=== PATIENT | female | born 1980 | race African-American/Black ===

== ENCOUNTER 2016-06-23 21:08 | Emergency (ER) | payer MEDICAID ==
[~2016-06-23] VITALS: Ht 172.7 cm; Wt 208.7 kg
[2016-06-23] MEDS ORDERED: methylPREDNISolone SOD SUCC 125 MG/2 ML VL IM ONE (23:45)
[2016-06-23] MEDS ORDERED: LEVOFLOXACIN 750MG 150 ML IV ONE (23:45)
[2016-06-23] MEDS ORDERED: ALBUTEROL SULF 2.5 MG/0.5ML(0.5%) NEB SOLN NEB ONE (23:45)
[2016-06-23] MEDS ORDERED: IPRATROPIUM BROM 0.5 MG/2.5ML INH SOL NEB ONE (23:45)
[2016-06-24] MEDS ORDERED: LEVOFLOXACIN 250 MG TAB PO ONE
[2016-06-24 00:07] VITALS: BP 112/82
== END 2016-06-24 02:40 | disposition home or self-care (01) ==
LOC: ER 21:11
DX: J20.9 Acute bronchitis, unspecified (principal); J45.901 Unspecified asthma with (acute) exacerbation; E11.9 Type 2 diabetes mellitus without complications; I10 Essential (primary) hypertension; F17.210 Nicotine dependence, cigarettes, uncomplicated; E66.01 Morbid (severe) obesity due to excess calories; Z68.44 Body mass index [BMI] 60.0-69.9, adult
CPT/HCPCS: 82962; 94640; 96372; 99283; J2930

== ENCOUNTER 2016-07-09 22:24 | Inpatient (IN) | payer MEDICAID ==
[~2016-07-09] VITALS: Ht 172.7 cm; Wt 208.7 kg
[2016-07-09] MEDS ORDERED: IPRATROPIUM BROM 0.5 MG/2.5ML INH SOL NEB ONE (23:45)
[2016-07-09] MEDS ORDERED: ALBUTEROL SULF 2.5 MG/0.5ML(0.5%) NEB SOLN NEB ONE (23:45)
[2016-07-09 23:56] LABS: Basophils # (auto) 0.1 uL; Basophils % (auto) 0.4 % (0.0-2.0); DEFINITIVE VIEW TRANSMISSION; Eosinophils # (auto) 0.4 uL; Eosinophils % (auto) 2.3 % (0.0-7.0); Hematocrit 42.6 % (36.0-46.0); Hemoglobin 13.1 g/dL (12.2-16.2); Lymphocytes # (auto) 4.2 uL; Lymphocytes % (auto) 24.6 % (10.0-50.0); Mean Corpuscular Hemoglobin 26.6 pg (28.0-32.0); Mean Corpuscular Hgb Conc. 30.8 g/dL (32.0-36.0); Mean Corpuscular Volume 86.3 fL (80.0-100.0); Mean Platelet Volume 8.9 fL (7.4-10.4); Monocytes # (auto) 0.7 uL; Monocytes % (auto) 4.2 % (0.0-12.0); Neutrophils # (auto) 11.8 uL; Neutrophils % (auto) 68.5 % (37.0-80.0); Platelet Count (auto) 353 10^3/uL (140-450); Red Cell Distribution Width 15.6 % (11.6-16.0); White Blood Cell 17.2 10^3/uL (4.4-10.8)
[2016-07-10 00:29] LABS: Albumin 3.3 g/dL (3.4-5.0); BUN/Creatinine Ratio 12.2; Bilirubin, Total 0.2 mg/dL (0.2-1.0); Calcium 9.3 mg/dL (8.5-10.1); Potassium 4.7 mmol/L (3.5-5.1); Total Protein 7.9 g/dL (6.4-8.2)
[2016-07-10] MEDS ORDERED: IPRATROPIUM BROM 0.5 MG/2.5ML INH SOL NEB ONE ×2 (01:30→06:30)
[2016-07-10] MEDS ORDERED: ALBUTEROL SULF 2.5 MG/0.5ML(0.5%) NEB SOLN NEB ONE ×2 (01:30→06:30)
[2016-07-10] MEDS ORDERED: methylPREDNISolone SOD SUCC 125 MG/2 ML VL IM ONE (01:30)
[2016-07-10] MEDS ORDERED: methylPREDNISolone SOD SUCC 125 MG/2 ML VL IV ONE (01:30)
[2016-07-10 01:54] LABS: Urine Bilirubin Negative (Negative); Urine Blood Negative /uL (Negative); Urine Color Yellow (Yellow); Urine Ketone TRACE (Negative); Urine Mucus FEW (None Seen); Urine Nitrite Negative (Negative); Urine RBC 1 /hpf (0 - 4); Urine Squamous Epithelial Cell FEW /hpf (<5); Urine Urobilinogen Normal (Negative)
[2016-07-10 01:55] LABS: Urine Glucose 4+ mg/dL (Normal)
[2016-07-10] MEDS ORDERED: HYDROcodone-ACET 10/325MG TAB PO ONE ×2 (02:30→02:45)
[2016-07-10 03:30] LABS: B-Type Natriuretic Peptide < 5 pg/mL (0-100); Temperature: 21.6 C (20.0-25.0)
[2016-07-10] MEDS ORDERED: SODIUM CHLORIDE 0.9% 1,000 ML IV SCH (06:25)
[2016-07-10] MEDS ORDERED: NITROGLYCERIN 0.4 MG SL TAB SL PRN (06:30)
[2016-07-10] MEDS ORDERED: ONDANSETRON HCL 4 MG/2 ML VIAL IV PRN (06:30)
[2016-07-10] MEDS ORDERED: ACETAMINOPHEN 325 MG TAB PO PRN (06:30)
[2016-07-10] MEDS ORDERED: ALBUTEROL SULF 2.5 MG/0.5ML(0.5%) NEB SOLN NEB PRN (06:30)
[2016-07-10] MEDS ORDERED: MORPHINE SULF INJ 2 MG/ML SYRINGE 1ML IV PRN (06:30)
[2016-07-10] MEDS ORDERED: DEXTROSE (50%) 50ML SYRG IV PRN (06:30)
[2016-07-10] MEDS ORDERED: IPRATROPIUM BROM 0.5 MG/2.5ML INH SOL NEB PRN (06:30)
[2016-07-10] MEDS ORDERED: FUROSEMIDE 20 MG/2 ML VIAL IV ONE (06:45)
[2016-07-10] MEDS ORDERED: cefTRIAXone 1GM/50ML D5W 50 ML IV ONE (06:59)
[2016-07-10] MEDS: cefTRIAXone 1GM/50ML D5W 50 ML IV SCH ×2 (07:05→07:58)
[2016-07-10 08:37] VITALS: BP 120/74
[2016-07-10] MEDS: HYDROcodone-ACET 5/325MG TAB PO PRN ×2 (09:05→18:19)
[2016-07-10] MEDS ORDERED: methylPREDNISolone SOD SUCC 125 MG/2 ML VL IV SCH (10:00)
[2016-07-10] MEDS: FAMOTIDINE 20 MG TAB PO SCH ×2 (11:08→22:54)
[2016-07-10] MEDS: LISINOPRIL 10 MG TAB PO SCH (11:08)
[2016-07-10] MEDS: amLODIPine BESYLATE 5 MG TAB PO SCH (11:09)
[2016-07-10] MEDS: ENOXAPARIN SOD 40 MG/0.4 ML SYRINGE SC SCH (11:09)
[2016-07-10] MEDS ORDERED: InsuLIN REG 1unit/0.01ml Soln (100units/ml) SC SCH (12:00)
[2016-07-10] MEDS ORDERED: ACCU-CHEK COMFORT CURVE STRIP VI SCH (12:00)
[2016-07-10] MEDS ORDERED: PROMETHAZINE W/CODEINE 5 ML ORAL SYRUP PO PRN (12:45)
[2016-07-10 13:00] VITALS: BP 137/67
[2016-07-10] MEDS: IPRATROPIUM BROM 0.5 MG/2.5ML INH SOL NEB SCH ×2 (13:54→18:25)
[2016-07-10] MEDS: ALBUTEROL SULF 2.5 MG/0.5ML(0.5%) NEB SOLN NEB SCH ×3 (13:55→22:00)
[2016-07-10 14:01] VITALS: BP 120/74
[2016-07-10 16:54] VITALS: BP 125/70
[2016-07-10] MEDS ORDERED: ACETYLCYSTEINE 10 %(100MG/ML) SOL 4ML NEB SCH (18:00)
[2016-07-10] MEDS: methylPREDNISolone SOD SUCC 125 MG/2 ML VL IV SCH ×2 (18:13→23:09)
[2016-07-10] MEDS: metFORMIN HYDROCHLORIDE 500 MG TAB PO SCH (18:14)
[2016-07-10] MEDS: BUDESONIDE (INHALATION) 0.5 MG/2 ML NEB NEB SCH (18:26)
[2016-07-10 22:00] VITALS: BP 139/77
[2016-07-10] MEDS: ACETYLCYSTEINE 10 %(100MG/ML) SOL 4ML NEB SCH (22:40)
[2016-07-10] MEDS: FLUTICASONE PROP NASAL SPR 0.05 % (50MCG) 16GM EACHNOSTRI SCH (22:55)
[2016-07-10] MEDS: ACCU-CHEK COMFORT CURVE STRIP VI SCH (22:57)
[2016-07-10] MEDS: InsuLIN REG 1unit/0.01ml Soln (100units/ml) SC SCH (23:09)
[2016-07-11] MEDS: HYDROcodone-ACET 5/325MG TAB PO PRN (03:07)
[2016-07-11 05:00] VITALS: BP 129/79
[2016-07-11] MEDS: methylPREDNISolone SOD SUCC 125 MG/2 ML VL IV SCH ×2 (05:22→12:13)
[2016-07-11] MEDS: ACCU-CHEK COMFORT CURVE STRIP VI SCH ×2 (05:23→11:30)
[2016-07-11] MEDS: ACETYLCYSTEINE 10 %(100MG/ML) SOL 4ML NEB SCH ×2 (05:52→14:26)
[2016-07-11] MEDS: IPRATROPIUM BROM 0.5 MG/2.5ML INH SOL NEB SCH ×3 (05:52→14:26)
[2016-07-11] MEDS: BUDESONIDE (INHALATION) 0.5 MG/2 ML NEB NEB SCH (05:52)
[2016-07-11] MEDS: ALBUTEROL SULF 2.5 MG/0.5ML(0.5%) NEB SOLN NEB SCH ×3 (05:52→14:26)
[2016-07-11 06:19] LABS: Basophils # (auto) 0 uL; DEFINITIVE VIEW TRANSMISSION; Eosinophils # (auto) 0 uL; Hemoglobin 12.7 g/dL (12.2-16.2); Mean Corpuscular Hemoglobin 26.5 pg (28.0-32.0); Mean Corpuscular Hgb Conc. 30.3 g/dL (32.0-36.0); Mean Corpuscular Volume 87.5 fL (80.0-100.0); Mean Platelet Volume 9.1 fL (7.4-10.4); Monocytes # (auto) 0.7 uL; Neutrophils # (auto) 19.3 uL; Platelet Count (auto) 379 10^3/uL (140-450); Red Cell Distribution Width 15.5 % (11.6-16.0)
[2016-07-11 06:39] LABS: Albumin 3.1 g/dL (3.4-5.0); Potassium 4.4 mmol/L (3.5-5.1)
[2016-07-11 06:42] LABS: BUN/Creatinine Ratio 18.3; Calcium 9.9 mg/dL (8.5-10.1)
[2016-07-11 07:10] LABS: Bilirubin, Total 0.3 mg/dL (0.2-1.0); Total Protein 7.8 g/dL (6.4-8.2)
[2016-07-11] MEDS: InsuLIN REG 1unit/0.01ml Soln (100units/ml) SC SCH ×2 (07:22→11:30)
[2016-07-11] MEDS: metFORMIN HYDROCHLORIDE 500 MG TAB PO SCH (08:29)
[2016-07-11] MEDS: cefTRIAXone 1GM/50ML D5W 50 ML IV SCH (08:30)
[2016-07-11 09:00] VITALS: BP 139/74
[2016-07-11] MEDS: amLODIPine BESYLATE 5 MG TAB PO SCH (10:32)
[2016-07-11] MEDS: FLUTICASONE PROP NASAL SPR 0.05 % (50MCG) 16GM EACHNOSTRI SCH (10:33)
[2016-07-11] MEDS: ENOXAPARIN SOD 40 MG/0.4 ML SYRINGE SC SCH (10:33)
[2016-07-11] MEDS: FAMOTIDINE 20 MG TAB PO SCH (10:33)
[2016-07-11] MEDS: LISINOPRIL 10 MG TAB PO SCH (10:33)
[2016-07-11 13:00] VITALS: BP 126/95
[2016-07-11 15:13] VITALS: BP 129/79
== END 2016-07-11 16:00 | disposition home or self-care (01) | DRG 144 ==
LOC: ER 22:26 → TELE 22:27 → TELE-E-ADS 07-10 08:44 → TELE-WESTW 07-10 11:55
PROVIDERS: ADMIT Internal Medicine; ATTEND Hospitalist
DX: J20.9 Acute bronchitis, unspecified (principal); E11.65 Type 2 diabetes mellitus with hyperglycemia; J45.901 Unspecified asthma with (acute) exacerbation; N39.0 Urinary tract infection, site not specified; E87.1 Hypo-osmolality and hyponatremia; I10 Essential (primary) hypertension; E66.01 Morbid (severe) obesity due to excess calories; F17.210 Nicotine dependence, cigarettes, uncomplicated; R09.02 Hypoxemia; R09.82 Postnasal drip; Z68.45 Body mass index [BMI] 70 or greater, adult
CPT/HCPCS: 36415; 71010; 80053; 81001; 82962; 83036; 83880; 84702; 85025; 85379; 87040; 87086; 93306; 94640; 96374; J0696; J1815

== ENCOUNTER 2016-08-06 18:24 | Emergency (ER) | payer MEDICAID ==
[~2016-08-06] VITALS: Ht 172.7 cm; Wt 208.7 kg
[2016-08-06 19:58] LABS: Basophils # (auto) 0 uL; Basophils % (auto) 0.4 % (0.0-2.0); Eosinophils # (auto) 0.4 uL; Eosinophils % (auto) 2.7 % (0.0-7.0); Hematocrit 39.7 % (36.0-46.0); Hemoglobin 12.9 g/dL (12.2-16.2); Lymphocytes # (auto) 3.1 uL; Lymphocytes % (auto) 22.8 % (10.0-50.0); Mean Corpuscular Hemoglobin 27.8 pg (28.0-32.0); Mean Corpuscular Hgb Conc. 32.5 g/dL (32.0-36.0); Mean Corpuscular Volume 85.4 fL (80.0-100.0); Mean Platelet Volume 8.2 fL (7.4-10.4); Monocytes % (auto) 7.6 % (0.0-12.0); Neutrophils # (auto) 8.9 uL; Neutrophils % (auto) 66.5 % (37.0-80.0); Platelet Count (auto) 395 10^3/uL (140-450); Red Cell Distribution Width 14.6 % (11.6-16.0); White Blood Cell 13.4 10^3/uL (4.4-10.8)
[2016-08-06] MEDS ORDERED: SODIUM CHLORIDE 0.9% 1,000 ML IV ONE (20:00)
[2016-08-06 20:15] LABS: Albumin 3.2 g/dL (3.4-5.0); BUN/Creatinine Ratio 9.4; Bilirubin, Total 0.2 mg/dL (0.2-1.0); Potassium 3.8 mmol/L (3.5-5.1); Total Protein 7.4 g/dL (6.4-8.2)
[2016-08-06 20:31] LABS: Urine Bilirubin Negative (Negative); Urine Blood Negative /uL (Negative); Urine Color Yellow (Yellow); Urine Glucose 4+ mg/dL (Normal); Urine Ketone Negative (Negative); Urine Mucus FEW (None Seen); Urine Nitrite Negative (Negative); Urine RBC <1 /hpf (0 - 4); Urine Squamous Epithelial Cell FEW /hpf (<5); Urine Urobilinogen Normal (Negative)
[2016-08-06] MEDS ORDERED: FAMOTIDINE 20 MG TAB PO ONE (21:30)
[2016-08-06 21:54] VITALS: BP 149/124
== END 2016-08-06 23:21 | disposition home or self-care (01) ==
LOC: ER 18:25
DX: K29.70 Gastritis, unspecified, without bleeding (principal); F19.10 Other psychoactive substance abuse, uncomplicated; M19.90 Unspecified osteoarthritis, unspecified site; J45.909 Unspecified asthma, uncomplicated; E11.9 Type 2 diabetes mellitus without complications; I10 Essential (primary) hypertension; F17.210 Nicotine dependence, cigarettes, uncomplicated
CPT/HCPCS: 36415; 74022; 76705; 80053; 81001; 81025; 83690; 85025; 93005; 96360; 99285; G0434; J7030

== ENCOUNTER 2016-10-16 20:11 | Inpatient (IN) | payer MEDICAID ==
[~2016-10-16] VITALS: Ht 172.7 cm; Wt 220.0 kg
[2016-10-16] MEDS ORDERED: IPRATROPIUM BROM 0.5 MG/2.5ML INH SOL NEB ONE (21:15)
[2016-10-16] MEDS ORDERED: ALBUTEROL SULF 2.5 MG/0.5ML(0.5%) NEB SOLN HHN ONE (21:15)
[2016-10-16] MEDS ORDERED: cefTRIAXone 1GM/50ML D5W 50 ML IV ONE (21:15)
[2016-10-16] MEDS ORDERED: methylPREDNISolone SOD SUCC 125 MG/2 ML VL IV ONE (21:15)
[2016-10-16] MEDS ORDERED: SODIUM CHLORIDE 0.9% 500 ML IVB ONE (21:26)
[2016-10-16 21:27] LABS: Albumin 3.8 g/dL (3.4-5.0); Anion Gap 8 (5-15); Aspartate Aminotransferase 16 U/L (15-37); BUN/Creatinine Ratio 17.1; Blood Urea Nitrogen 12 mg/dL (7-18); Calcium 9.2 mg/dL (8.5-10.1); Carbon Dioxide 27 mmol/L (21-32); Chloride 102 mmol/L (98-107); GFR African American 123 mL/min; GFR Non-African American 102 mL/min; Glucose 246 mg/dL (74-106); Potassium 4.3 mmol/L (3.5-5.1); Sodium 137 mmol/L (136-145)
[2016-10-16 21:32] LABS: Alkaline Phosphatase 134 U/L (45-117); Bilirubin, Total < 0.1 mg/dL (0.2-1.0); Total Protein 8.1 g/dL (6.4-8.2)
[2016-10-16 21:33] LABS: Basophils # (auto) 0.1 uL; Basophils % (auto) 0.4 % (0.0-2.0); DEFINITIVE VIEW TRANSMISSION; Eosinophils # (auto) 0.3 uL; Eosinophils % (auto) 1.5 % (0.0-7.0); Hematocrit 42.8 % (36.0-46.0); Hemoglobin 13.7 g/dL (12.2-16.2); Lymphocytes # (auto) 4.6 uL; Lymphocytes % (auto) 24.4 % (10.0-50.0); Mean Corpuscular Hemoglobin 26.5 pg (28.0-32.0); Mean Corpuscular Hgb Conc. 32.1 g/dL (32.0-36.0); Mean Corpuscular Volume 82.4 fL (80.0-100.0); Mean Platelet Volume 9.1 fL (7.4-10.4); Monocytes # (auto) 0.8 uL; Neutrophils # (auto) 13.1 uL; Neutrophils % (auto) 69.7 % (37.0-80.0); Platelet Count (auto) 387 10^3/uL (140-450); Red Cell Distribution Width 15.2 % (11.6-16.0); White Blood Cell 18.8 10^3/uL (4.4-10.8)
[2016-10-16 21:34] LABS: Urine RBC None Seen /hpf (0 - 4)
[2016-10-16 21:54] LABS: Urine Bilirubin Negative (Negative); Urine Blood Negative /uL (Negative); Urine Color Yellow (Yellow); Urine Glucose 3+ mg/dL (Normal); Urine Ketone TRACE (Negative); Urine Nitrite Negative (Negative); Urine Squamous Epithelial Cell FEW /hpf (<5); Urine Urobilinogen Normal (Negative); Urine pH 5.5 (5.0-8.0)
[2016-10-16] MEDS ORDERED: KETOROLAC TROMETH 30 MG/ML 1ML VIAL IV ONE (22:15)
[2016-10-16 22:20] LABS: Lactic Acid w/Reflex 2.1 mmol/L (0.4-2.0)
[2016-10-16 22:43] LABS: REFLEX LACTIC ACID YES OR NO YES
[2016-10-17] MEDS ORDERED: SODIUM CHLORIDE 0.9% 1,000 ML IV SCH (00:28)
[2016-10-17] MEDS ORDERED: LEVOFLOXACIN 500MG 100 ML IV ONE (00:30)
[2016-10-17] MEDS ORDERED: HYDROcodone-ACET 5/325MG TAB PO PRN (00:30)
[2016-10-17] MEDS ORDERED: DEXTROSE (50%) 50ML SYRG IV PRN (00:30)
[2016-10-17] MEDS ORDERED: IPRATROPIUM BROM 0.5 MG/2.5ML INH SOL NEB PRN (00:30)
[2016-10-17] MEDS ORDERED: ALBUTEROL SULF 2.5 MG/0.5ML(0.5%) NEB SOLN NEB PRN (00:30)
[2016-10-17] MEDS ORDERED: ONDANSETRON HCL 4 MG/2 ML VIAL IV PRN (00:30)
[2016-10-17] MEDS ORDERED: SODIUM CHLORIDE 0.9% 500 ML IV ONE (00:30)
[2016-10-17] MEDS ORDERED: ACETAMINOPHEN 325 MG TAB PO PRN (00:30)
[2016-10-17 01:04] LABS: Cholesterol 184 mg/dL (< 200); HDL Cholesterol 44 mg/dL (40-59); LDL Cholesterol 123 mg/dL (< 100); Triglycerides 208 mg/dL (< 150)
[2016-10-17 01:41] VITALS: BP 159/92
[2016-10-17] MEDS: MORPHINE SULF INJ 2 MG/ML SYRINGE 1ML IV PRN ×2 (02:42→09:52)
[2016-10-17] MEDS ORDERED: AMLO10TA2 PO (03:05)
[2016-10-17] MEDS ORDERED: LISI10TA6 PO (03:05)
[2016-10-17] MEDS ORDERED: METF-316 PO (03:05)
[2016-10-17 03:50] VITALS: BP 159/92
[2016-10-17] MEDS: ACCU-CHEK COMFORT CURVE STRIP VI SCH ×2 (06:17→11:54)
[2016-10-17] MEDS: InsuLIN REG 1unit/0.01ml Soln (100units/ml) SC SCH ×2 (06:17→11:53)
[2016-10-17 08:00] VITALS: BP 127/78
[2016-10-17 09:00] VITALS: BP 127/78
[2016-10-17] MEDS ORDERED: methylPREDNISolone SOD SUCC 125 MG/2 ML VL IV SCH (10:00)
[2016-10-17] MEDS ORDERED: FAMOTIDINE 20 MG TAB PO SCH (10:00)
[2016-10-17] MEDS ORDERED: LISINOPRIL 10 MG TAB PO SCH (10:00)
[2016-10-17] MEDS ORDERED: ENOXAPARIN SOD 40 MG/0.4 ML SYRINGE SC SCH (10:00)
[2016-10-17] MEDS ORDERED: amLODIPine BESYLATE 5 MG TAB PO SCH (10:00)
[2016-10-17 10:27] LABS: Basophils # (auto) 0 uL; Basophils % (auto) 0.2 % (0.0-2.0); DEFINITIVE VIEW TRANSMISSION; Eosinophils # (auto) 0 uL; Hematocrit 40.3 % (36.0-46.0); Hemoglobin 13.1 g/dL (12.2-16.2); Lymphocytes # (auto) 1.5 uL; Lymphocytes % (auto) 8.5 % (10.0-50.0); Mean Corpuscular Hemoglobin 26.7 pg (28.0-32.0); Mean Corpuscular Hgb Conc. 32.5 g/dL (32.0-36.0); Mean Corpuscular Volume 82.1 fL (80.0-100.0); Mean Platelet Volume 8.5 fL (7.4-10.4); Monocytes # (auto) 0.1 uL; Monocytes % (auto) 0.6 % (0.0-12.0); Neutrophils # (auto) 15.6 uL; Neutrophils % (auto) 90.7 % (37.0-80.0); Platelet Count (auto) 378 10^3/uL (140-450); Red Cell Distribution Width 15.2 % (11.6-16.0); White Blood Cell 17.2 10^3/uL (4.4-10.8)
[2016-10-17 10:45] LABS: Lactic Acid w/Reflex 2.4 mmol/L (0.4-2.0)
[2016-10-17 11:18] LABS: REFLEX LACTIC ACID YES OR NO YES
[2016-10-17 13:00] VITALS: BP 147/80
[2016-10-18] MEDS ORDERED: LEVOFLOXACIN 500MG 100 ML IV SCH (01:00)
== END 2016-10-17 15:47 | disposition home or self-care (01) | DRG 141 ==
LOC: ER 20:11 → WEST WING 20:12
PROVIDERS: ADMIT Nurse Practitioner; ATTEND Internal Medicine
DX: J45.901 Unspecified asthma with (acute) exacerbation (principal); J18.9 Pneumonia, unspecified organism; I11.9 Hypertensive heart disease without heart failure; E11.65 Type 2 diabetes mellitus with hyperglycemia; Z68.45 Body mass index [BMI] 70 or greater, adult; F41.9 Anxiety disorder, unspecified; S16.1XXA Strain of muscle, fascia and tendon at neck level, initial encounter; D72.829 Elevated white blood cell count, unspecified; E66.01 Morbid (severe) obesity due to excess calories; F17.210 Nicotine dependence, cigarettes, uncomplicated; M25.512 Pain in left shoulder; T38.0X5A Adverse effect of glucocorticoids and synthetic analogues, initial encounter; Y92.89 Other specified places as the place of occurrence of the external cause
CPT/HCPCS: 36415; 71010; 73030; 80053; 80061; 81001; 81025; 82962; 83036; 83605; 83735; 84484; 85025; 85379; 87040; 93005; 94640; 94761; 96365; 96366; 96375; J0696; J1815; J1885; J1956

== ENCOUNTER 2017-06-02 21:34 | Emergency (ER) | payer MEDICAID ==
[~2017-06-02] VITALS: Ht 172.7 cm; Wt 204.1 kg
[~2017-06-02 21:34] MED LIST: AMLO10TA2 PO; LISI10TA6 PO
[2017-06-02] MEDS ORDERED: IPRATROPIUM BROM 0.5 MG/2.5ML INH SOL NEB ONE (22:15)
[2017-06-02] MEDS ORDERED: ALBUTEROL SULF 2.5 MG/0.5ML(0.5%) NEB SOLN NEB ONE (22:15)
[2017-06-02 22:32] VITALS: BP 146/90
[2017-06-02] MEDS ORDERED: methylPREDNISolone SOD SUCC 125 MG/2 ML VL IV ONE (22:45)
[2017-06-02] MEDS ORDERED: ACETAMINOPHEN 500 MG TAB PO ONE (23:00)
[2017-06-02 23:03] LABS: Basophils # (auto) 0.1 uL; Basophils % (auto) 0.7 % (0.0-2.0); Eosinophils # (auto) 0.4 uL; Eosinophils % (auto) 2.1 % (0.0-7.0); Hematocrit 41.4 % (36.0-46.0); Hemoglobin 13.8 g/dL (12.2-16.2); Lymphocytes # (auto) 3.8 uL; Lymphocytes % (auto) 21.6 % (10.0-50.0); Mean Corpuscular Hgb Conc. 33.3 g/dL (32.0-36.0); Mean Corpuscular Volume 87.1 fL (80.0-100.0); Monocytes # (auto) 1.2 uL; Monocytes % (auto) 6.7 % (0.0-12.0); Neutrophils # (auto) 12.3 uL; Neutrophils % (auto) 68.9 % (37.0-80.0); Nucleated Red Blood Cells % 0.1 %; Platelet Count (auto) 297 10^3/uL (140-450); Red Blood Cells 4.76 10^6/uL (4.0-5.20); Red Cell Distribution Width 14.3 % (11.8-14.3); White Blood Cell 17.8 10^3/uL (4.4-10.8)
[2017-06-02 23:04] LABS: Calcium 8.9 mg/dL (8.5-10.1); Potassium 4.2 mmol/L (3.5-5.1)
[2017-06-02 23:08] LABS: Albumin 3.4 g/dL (3.4-5.0)
[2017-06-02 23:10] LABS: Bilirubin, Total 0.2 mg/dL (0.2-1.0); Total Protein 8.4 g/dL (6.4-8.2)
== END 2017-06-03 00:55 | disposition left against medical advice (07) ==
LOC: ER 21:34
DX: R06.02 Shortness of breath (principal); Z53.21 Procedure and treatment not carried out due to patient leaving prior to being seen by health care provider
CPT/HCPCS: 36415; 71010; 80053; 83880; 85025; 94640; J2930

== ENCOUNTER 2017-06-11 09:41 | Emergency (ER) | payer MEDICAID ==
[~2017-06-11] VITALS: Ht 172.7 cm; Wt 199.6 kg
[2017-06-11 09:51] VITALS: BP 155/91
[2017-06-11 10:21] LABS: Basophils # (auto) 0 uL; Basophils % (auto) 0.3 % (0.0-2.0); Eosinophils # (auto) 0.2 uL; Eosinophils % (auto) 2.3 % (0.0-7.0); Lymphocytes # (auto) 2.5 uL; Lymphocytes % (auto) 22.9 % (10.0-50.0); Mean Corpuscular Hemoglobin 28.5 pg (28.0-32.0); Mean Corpuscular Hgb Conc. 33.4 g/dL (32.0-36.0); Mean Corpuscular Volume 85.3 fL (80.0-100.0); Monocytes # (auto) 1.4 uL; Monocytes % (auto) 12.8 % (0.0-12.0); Neutrophils # (auto) 6.8 uL; Neutrophils % (auto) 61.7 % (37.0-80.0); Nucleated Red Blood Cells % 0.4 %; Platelet Count (auto) 297 10^3/uL (140-450); Red Blood Cells 5.28 10^6/uL (4.0-5.20); Red Cell Distribution Width 14.1 % (11.8-14.3); White Blood Cell 11.1 10^3/uL (4.4-10.8)
[2017-06-11 10:36] LABS: Albumin 3.4 g/dL (3.4-5.0); BUN/Creatinine Ratio 8.6; Calcium 8.7 mg/dL (8.5-10.1); Potassium 3.8 mmol/L (3.5-5.1)
[2017-06-11 10:39] LABS: Total Protein 8.3 g/dL (6.4-8.2)
[2017-06-11 12:59] LABS: Bilirubin, Total 0.3 mg/dL (0.2-1.0)
== END 2017-06-11 19:10 | disposition left against medical advice (07) ==
LOC: ER 09:41
DX: R10.9 Unspecified abdominal pain (principal); R11.2 Nausea with vomiting, unspecified; Z53.21 Procedure and treatment not carried out due to patient leaving prior to being seen by health care provider
CPT/HCPCS: 36415; 80053; 82150; 83690; 84702; 85025

== ENCOUNTER 2017-06-15 21:25 | Emergency (ER) | payer MEDICAID ==
[~2017-06-15] VITALS: Ht 172.7 cm; Wt 217.7 kg
[2017-06-15] MEDS ORDERED: methylPREDNISolone SOD SUCC 125 MG/2 ML VL IV ONE (21:30)
[2017-06-15] MEDS ORDERED: ALBUTEROL SULF 2.5 MG/0.5ML(0.5%) NEB SOLN NEB ONE (21:30)
[2017-06-15] MEDS ORDERED: IPRATROPIUM BROM 0.5 MG/2.5ML INH SOL NEB ONE (21:30)
[2017-06-15] MEDS ORDERED: ALBUTEROL SULF 2.5 MG/0.5ML(0.5%) NEB SOLN HHN ONE (22:45)
[2017-06-15] MEDS ORDERED: IPRATROPIUM BROM 0.5 MG/2.5ML INH SOL HHN ONE (22:45)
[2017-06-15 23:11] LABS: Basophils # (auto) 0 uL; Basophils % (auto) 0.3 % (0.0-2.0); Eosinophils # (auto) 0.3 uL; Eosinophils % (auto) 2.6 % (0.0-7.0); Hematocrit 41.3 % (36.0-46.0); Hemoglobin 13.4 g/dL (12.2-16.2); Lymphocytes # (auto) 3.3 uL; Lymphocytes % (auto) 24.6 % (10.0-50.0); Mean Corpuscular Hemoglobin 28.2 pg (28.0-32.0); Mean Corpuscular Hgb Conc. 32.6 g/dL (32.0-36.0); Mean Corpuscular Volume 86.5 fL (80.0-100.0); Monocytes # (auto) 0.7 uL; Neutrophils % (auto) 67.5 % (37.0-80.0); Nucleated Red Blood Cells % 0.1 %; Platelet Count (auto) 286 10^3/uL (140-450); Red Blood Cells 4.77 10^6/uL (4.0-5.20); Red Cell Distribution Width 14.3 % (11.8-14.3); White Blood Cell 13.3 10^3/uL (4.4-10.8)
[2017-06-15 23:32] LABS: Albumin 3.3 g/dL (3.4-5.0); BUN/Creatinine Ratio 12.5; Bilirubin, Total 0.2 mg/dL (0.2-1.0); Calcium 8.7 mg/dL (8.5-10.1); Potassium 3.7 mmol/L (3.5-5.1); Total Protein 7.8 g/dL (6.4-8.2)
[2017-06-16] MEDS ORDERED: HYDROcodone-ACET 10/325MG TAB PO ONE (00:15)
[2017-06-16 00:45] VITALS: BP 135/80
== END 2017-06-16 00:56 | disposition home or self-care (01) ==
LOC: ER 21:25
DX: J45.901 Unspecified asthma with (acute) exacerbation (principal); E11.9 Type 2 diabetes mellitus without complications; I10 Essential (primary) hypertension; F17.210 Nicotine dependence, cigarettes, uncomplicated
CPT/HCPCS: 36415; 71045; 80053; 83735; 83880; 85025; 94640; 94761; 96374; 99285; J2930

== ENCOUNTER 2017-06-17 02:06 | Inpatient (IN) | payer MEDICAID ==
[~2017-06-17] VITALS: Ht 172.7 cm; Wt 199.6 kg
[~2017-06-17 02:06] MED LIST changes: +ALBUTEROL SULF 2.5 MG/0.5ML(0.5%) NEB SOLN ONE
[2017-06-17] MEDS ORDERED: IPRATROPIUM BROM 0.5 MG/2.5ML INH SOL ONE (02:07)
[2017-06-17] MEDS ORDERED: ALBUTEROL SULF 2.5 MG/0.5ML(0.5%) NEB SOLN NEB ONE (02:15)
[2017-06-17] MEDS ORDERED: IPRATROPIUM BROM 0.5 MG/2.5ML INH SOL NEB ONE (02:15)
[2017-06-17] MEDS ORDERED: SODIUM CHLORIDE 0.9% 1,000 ML IV ONE (02:27)
[2017-06-17] MEDS ORDERED: ALBUTEROL SULF 2.5 MG/0.5ML(0.5%) NEB SOLN HHN ONE (02:30)
[2017-06-17] MEDS ORDERED: IPRATROPIUM BROM 0.5 MG/2.5ML INH SOL HHN ONE (02:30)
[2017-06-17] MEDS ORDERED: methylPREDNISolone SOD SUCC 125 MG/2 ML VL IV ONE (02:30)
[2017-06-17] MEDS ORDERED: SODIUM CHLORIDE 0.9% 1,000 ML IV SCH (06:05)
[2017-06-17] MEDS ORDERED: ALBUTEROL SULF 2.5 MG/0.5ML(0.5%) NEB SOLN NEB PRN (06:15)
[2017-06-17] MEDS ORDERED: DEXTROSE (50%) 50ML SYRG IV PRN (06:15)
[2017-06-17] MEDS ORDERED: IPRATROPIUM BROM 0.5 MG/2.5ML INH SOL NEB PRN (06:15)
[2017-06-17] MEDS ORDERED: NITROGLYCERIN 0.4 MG SL TAB SL PRN (06:15)
[2017-06-17] MEDS ORDERED: ACETAMINOPHEN 325 MG TAB PO PRN (06:15)
[2017-06-17] MEDS ORDERED: TEMAZEPAM 15 MG CAP PO PRN (06:15)
[2017-06-17] MEDS ORDERED: MORPHINE SULF INJ 2 MG/ML SYRINGE 1ML IV PRN (06:15)
[2017-06-17] MEDS ORDERED: ONDANSETRON HCL 4 MG/2 ML VIAL IV PRN (06:15)
[2017-06-17 06:28] LABS: Basophils # (auto) 0.1 uL; Basophils % (auto) 0.4 % (0.0-2.0); Eosinophils # (auto) 0 uL; Hematocrit 43.2 % (36.0-46.0); Hemoglobin 13.9 g/dL (12.2-16.2); Lymphocytes # (auto) 1.1 uL; Lymphocytes % (auto) 8.1 % (10.0-50.0); Mean Corpuscular Hemoglobin 28.3 pg (28.0-32.0); Mean Corpuscular Hgb Conc. 32.2 g/dL (32.0-36.0); Mean Corpuscular Volume 87.8 fL (80.0-100.0); Monocytes # (auto) 0.5 uL; Monocytes % (auto) 3.5 % (0.0-12.0); Neutrophils # (auto) 12.2 uL; Platelet Count (auto) 348 10^3/uL (140-450); Red Blood Cells 4.92 10^6/uL (4.0-5.20); Red Cell Distribution Width 14.7 % (11.8-14.3); White Blood Cell 13.9 10^3/uL (4.4-10.8)
[2017-06-17 06:36] LABS: Urine Bacteria NONE SEEN /hpf (None Seen); Urine Blood 2+ /uL (Negative); Urine Specific Gravity 1.036 (1.001-1.035); Urine WBC 3 /hpf (0 - 5)
[2017-06-17 06:41] LABS: Albumin 3.7 g/dL (3.4-5.0); BUN/Creatinine Ratio 13.8; Calcium 9.1 mg/dL (8.5-10.1); Potassium 4.1 mmol/L (3.5-5.1)
[2017-06-17 06:44] LABS: Bilirubin, Total 0.2 mg/dL (0.2-1.0); Total Protein 8.2 g/dL (6.4-8.2)
[2017-06-17] MEDS ORDERED: cefTRIAXone 1GM/10ml IVPUSH 10 ML IV SCH (09:00)
[2017-06-17] MEDS: HYDROcodone-ACET 5/325MG TAB PO PRN ×2 (09:18→13:50)
[2017-06-17] MEDS ORDERED: LISINOPRIL 10 MG TAB PO SCH (10:00)
[2017-06-17] MEDS ORDERED: amLODIPine BESYLATE 5 MG TAB PO SCH (10:00)
[2017-06-17] MEDS ORDERED: ENOXAPARIN SOD 40 MG/0.4 ML SYRINGE SC SCH (10:00)
[2017-06-17] MEDS ORDERED: FAMOTIDINE 20 MG TAB PO SCH (10:00)
[2017-06-17] MEDS ORDERED: methylPREDNISolone SOD SUCC 125 MG/2 ML VL IV SCH (10:00)
[2017-06-17] MEDS: InsuLIN REG 1unit/0.01ml Soln (100units/ml) SC SCH ×2 (12:00→17:09)
[2017-06-17] MEDS: ACCU-CHEK COMFORT CURVE STRIP VI SCH ×2 (12:00→17:08)
[2017-06-17] MEDS ORDERED: LEVOFLOXACIN 500MG 100 ML IV SCH (12:15)
[2017-06-17 13:51] VITALS: BP 122/72
[2017-06-17 17:00] VITALS: BP 135/66
[2017-06-17] MEDS ORDERED: methylPREDNISolone SOD SUCC 40 MG/ML VL IV SCH (18:00)
[2017-06-17] MEDS ORDERED: PATIENTS OWN MEDICATION (simvastatin 20 MG) PO SCH (22:00)
[2017-06-17] MEDS ORDERED: ATORVASTATIN 20 MG TAB PO SCH (22:00)
== END 2017-06-17 18:05 | disposition left against medical advice (07) | DRG 141 ==
LOC: ER 02:09 → TELE 02:10 → TELE-WESTW 08:34 → TELE-CENTR 13:11
PROVIDERS: ADMIT Nurse Practitioner; ATTEND Internal Medicine
DX: J45.52 Severe persistent asthma with status asthmaticus (principal); I10 Essential (primary) hypertension; E11.9 Type 2 diabetes mellitus without complications; Z68.44 Body mass index [BMI] 60.0-69.9, adult; F17.210 Nicotine dependence, cigarettes, uncomplicated; D72.829 Elevated white blood cell count, unspecified; R68.2 Dry mouth, unspecified; G47.9 Sleep disorder, unspecified; Z53.21 Procedure and treatment not carried out due to patient leaving prior to being seen by health care provider; E66.01 Morbid (severe) obesity due to excess calories; Z80.3 Family history of malignant neoplasm of breast; Z80.42 Family history of malignant neoplasm of prostate; Z79.899 Other long term (current) drug therapy; Z71.3 Dietary counseling and surveillance; R06.03 Acute respiratory distress
CPT/HCPCS: 36415; 71046; 80053; 81001; 82962; 83036; 85025; 87040; 94640; 94761; 96361; 96374; J1815; J1956